=== PATIENT | female | born 1985 | race Native Hawaiian/Other Pacific Islander ===

== ENCOUNTER 2018-07-15 04:52 | Emergency (ER) | payer SELFPAY ==
[2018-07-15 05:06] VITALS: O2SAT 100
[2018-07-15] MEDS ORDERED: Sodium Chloride 0.9% 1,000 ML IV ONE (05:31)
--- NOTE | 2018-07-15 05:33 | C.PDOC ---
Addendum entered and electronically signed by Bernie Leone APN 07/15/18 07:45: Disposition Clinical Impression: Pyelonephritis Disposition: HOME/ ROUTINE Disposition Time: 08:00 Condition: IMPROVED Additional Instructions: Follow up with your PMD or clinic for further evaluation Return to ED if any increase symptoms Prescriptions: Sulfamethoxazole/Trimethoprim [Bactrim DS 800 mg-160 mg] 1 tab PO BID #14 tab Instructions: Urinary Tract Infection, Adult (DC), Kidney Infection Referrals: [facility] [Outside] [facility] [Outside] Stand Alone Forms: [employer] (Kyrgyz) - POA Present On Arrival: None Original Note: History Of Present Illness 32 year old female presents to the ER with a complaint of right back/flank pain that has worsened as the day went by. Patient states the pain waxed and waned which woke her from sleep tonight. Patient notes she has seen blood in her urine and has had dysuria. Denies fever, chills, nausea, Hx of similar episodes, or prior surgeries. Time Seen by Provider: 07/15/18 05:12 Chief Complaint (Nursing): Back Pain History Per: Patient History/Exam Limitations: no limitations Onset/Duration Of Symptoms: Hrs, Waxing/Waning Current Symptoms Are (Timing): Worse Quality Of Discomfort: Unable To Describe Previous Symptoms: None Associated Symptoms: None Exacerbating Factor(s): Nothing Recent travel outside of the [place]: No Past Medical History Reviewed: Historical Data, Nursing Documentation, Vital Signs Vital Signs: Last Vital Signs Temp 98.6 F 07/15/18 04:59 Pulse 81 07/15/18 04:59 Resp 14 07/15/18 04:59 BP 127/84 07/15/18 04:59 Pulse Ox 100 07/15/18 05:38 Family History: States: No Known Family Hx - Social History Hx Alcohol Use: Yes ("Barely Drinks") Hx Substance Use: No - Immunization History Hx Influenza Vaccination: No Review Of Systems Constitutional: Negative for: Fever, Chills Respiratory: Negative for: Cough Gastrointestinal: Negative for: Nausea Genitourinary: Positive for: Dysuria, Hematuria Musculoskeletal: Positive for: Back Pain Neurological: Negative for: Weakness, Numbness Physical Exam - Physical Exam Appears: Non-toxic, Other (Uncomfortable) Skin: Normal Color, Warm, Dry Head: Atraumatic, Normacephalic Eye(s): bilateral: Normal Inspection Oral Mucosa: Moist Chest: Symmetrical, No Tenderness Cardiovascular: Rhythm Regular Respiratory: Normal Breath Sounds, No Rales, No Rhonchi, No Wheezing Gastrointestinal/Abdominal: Soft, No Tenderness Back: CVA Tenderness (Right) Neurological/Psych: Oriented x3, Normal Speech ED Course And Treatment - Laboratory Results Result Diagrams: 07/15/18 06:07 07/15/18 06:07 O2 Sat by Pulse Oximetry: 100 (Room air) Pulse Ox Interpretation: Normal Medical Decision Making Medical Decision Making: CT non con abd/pel, blood work, and urinalysis ordered. IV fluids and toradol administered. pyelonephritis vs kidney stone Disposition - Disposition Disposition Time: 06:58 Condition: IMPROVED Forms: [facility] [facility] (K[place]z) - Clinical Impression Clinical Impression: Pyelonephritis - Scribe Statement The provider has reviewed the documentation as recorded by the Scribe Oneil Miller All medical record entries made by the Scribe were at my direction and personally dictated by me. I have reviewed the chart and agree that the record accurately reflects my personal performance of the history, physical exam, medical decision making, and the department course for this patient. I have also personally directed, reviewed, and agree with the discharge instructions and disposition. Physician Patient Turnover Patient Signed Over To: Bernie Leone Handoff Comments: f/u ct scan , d/c with antibiotics
[2018-07-15 05:57] LABS: SQUAMOUS EPITHIAL < 1 /hpf (0-5); URINE BACTERIA RARE (<OCC); URINE BILIRUBIN NEGATIVE (NEGATIVE); URINE BLOOD 3+ (NEGATIVE); URINE CLARITY Hazy (Clear); URINE COLOR Yellow (YELLOW); URINE GLUCOSE (UA) NORMAL (Normal); URINE LEUKOCYTE ESTERASE 3+ Leu/uL (Negative); URINE PROTEIN 2+ mg/dL (NEGATIVE); URINE UROBILINOGEN NORMAL mg/dL (0.2-1.0)
[2018-07-15 06:23] LABS: BASO % 0.3 % (0.0-2.0); EOS % 0.5 % (0.0-4.0); LYMPH # 1.5 K/uL (1.0-4.3); LYMPH % 13.9 % (20.0-40.0); MEAN CELL VOLUME 63.2 fL (81.0-99.0); MEAN CORPUSCULAR HEMOGLOBIN 20.2 pg (27.0-31.0); MEAN PLATELET VOLUME 10.3 fL (7.2-11.7); MONO # 0.8 K/uL (0.0-0.8); MONO % 7.2 % (0.0-10.0); NEUT # 8.4 K/uL (1.8-7.0); NEUT % 78.1 % (50.0-75.0); RBC 5.91 Mil/uL (3.80-5.20); WHITE BLOOD COUNT 10.8 K/uL (4.8-10.8)
[2018-07-15 06:24] LABS: ALB/GLOB RATIO 1.4 (1.0-2.1); ALBUMIN 4.7 g/dL (3.5-5.0); ALT/SGPT 36 U/L (9-52); AST/SGOT 21 U/L (14-36); BLOOD UREA NITROGEN 8 mg/dL (7-17); CALCIUM 9.5 mg/dl (8.6-10.4); GFR NON-AFRICAN AMERICAN > 60; LIPASE 86 U/L (23-300)
[2018-07-15] MEDS ORDERED: cefTRIAXone 1 gm 1 GM/100 ML BAG IVPB ONE (07:02)
[2018-07-15 07:51] VITALS: BP 117/74; PULSE 54; RESP 16; TEMP 98.5
--- NOTE | 2018-07-15 10:04 | CT ---
Date of service: 07/15/2018 PROCEDURE: CT Abdomen and Pelvis without intravenous contrast HISTORY: right flank pain and hematuria COMPARISON: None. TECHNIQUE: Multiple contiguous axial images were performed through the abdomen and pelvis without intravenous contrast. Subsequently, sagittal and coronal reformatted images were obtained. Radiation dose: Total exam DLP = 202 mGy-cm. This CT exam was performed using one or more of the following dose reduction techniques: Automated exposure control, adjustment of the mA and/or kV according to patient size, and/or use of iterative reconstruction technique. FINDINGS: LOWER THORAX: 2 millimeter subpleural nodule within the posterior aspect of the right lower lobe of the lung on series 3, image 9. LIVER: Unremarkable. No gross lesion or ductal dilatation. GALLBLADDER AND BILE DUCTS: Unremarkable. PANCREAS: Unremarkable. No gross lesion or ductal dilatation. SPLEEN: Unremarkable. ADRENALS: Unremarkable. No mass. KIDNEYS AND URETERS: Unremarkable. No hydronephrosis. No solid mass. VASCULATURE: Unremarkable. No aortic aneurysm. BOWEL: Moderate fecal retention in the colon. APPENDIX: No findings to suggest acute appendicitis. PERITONEUM: Unremarkable. No free fluid. No free air. LYMPH NODES: Unremarkable. No enlarged lymph nodes. BLADDER: Unremarkable. REPRODUCTIVE: Unremarkable. BONES: Degenerative changes. Few scattered bone islands. OTHER FINDINGS: None. IMPRESSION: Moderate fecal retention in the colon compatible with constipation. 2 millimeter subpleural nodule within the posterior aspect of the right lower lobe of the lung on series 3, image 9. Interval follow-up may be helpful if clinically indicated. These findings were preliminarily reported at 6:59 a.m. on 07/15/[address] Hany Garnica from [employer]
== END 2018-07-15 07:58 | disposition home or self-care (01) ==
LOC: C.ER 04:52
DX: N12 Tubulo-interstitial nephritis, not specified as acute or chronic (principal)
CPT/HCPCS: 74176; 80053; 81001; 83690; 85025; 87086; 87181; 96374; 99285; J0696; J1885; J7030